=== PATIENT | female | born 1940 | race Caucasian/White ===

== ENCOUNTER 2024-02-12 15:45 | Emergency (ER) | payer OTHER, BC ==
[2024-02-12 16:29] VITALS: BP 118/72; PULSE 98; RESP 16; TEMP 98.3; BMI 26.6
[2024-02-12 17:12] LABS: INR 0.95 (0.83-1.09); PROTHROMBIN TIME (PATIENT) 10.9 SEC (9.7-13.0)
[2024-02-12 17:14] LABS: HEMATOCRIT 39.4 % (32.4-45.2); HEMOGLOBIN 12.7 G/dL (10.7-15.3); MCHC 32.3 g/dl (32.0-36.0); MEAN CELL VOLUME 92.9 fl (80-96); MEAN PLT VOLUME 9.5 fl (7.5-11.1); PLATELET COUNT 173.5 10^3/uL (134-434); RBC 4.24 10^6/uL (3.60-5.2); RDW 13.6 % (11.6-15.6); WHITE BLOOD COUNT 8.8 10^3/uL (4.0-10.8)
[2024-02-12 17:15] LABS: ACTIVATED PTT 35.9 SECONDS (25.2-36.5)
[2024-02-12 17:23] LABS: BILIRUBIN,TOTAL 0.7 mg/dl (0.2-1); CREATININE 1.2 mg/dl (0.6-1.3); MAGNESIUM 1.8 mg/dL (1.8-2.4); POTASSIUM 4.8 mmol/L (3.5-5.1); TOT PROT 6.3 g/dl (6.4-8.2)
[2024-02-12 17:30] LABS: PLATELET ESTIMATE ADEQUATE
[2024-02-12 17:40] LABS: EPITHELIAL CELLS 0-5 /hpf
== END 2024-02-12 18:36 | disposition home or self-care (01) ==
LOC: FER 15:45
DX: R30.0 Dysuria (principal); R10.32 Left lower quadrant pain; R50.9 Fever, unspecified
CPT/HCPCS: 36415; 74176-TC; 80053; 81003; 81015; 83735; 85027; 85610; 85730; 87086; 99284-25